=== PATIENT | female | born 1980 | race Hispanic/Latino ===

== ENCOUNTER 2017-07-17 17:35 | Emergency (ER) | payer OTHER, SELFPAY ==
[2017-07-17 17:58] VITALS: BMI 32.3
--- NOTE | 2017-07-17 19:01 | ED PDOC ---
Arrival/HPI - General Historian: Patient <Alejandra Gold A - Last Filed: 07/17/17 21:00> <Gavino Garcia - Last Filed: 07/17/17 22:17> - General Chief Complaint: Back Pain Time Seen by Provider: 07/17/17 17:51 - History of Present Illness Narrative History of Present Illness (Text): 07/17/17 18:51 37yo female with PMHx of Chiari's malformation present s/p Chiari surgery for surgical incision swelling x 2days. Notes surgery was done June 13 in [place]. She have had pain, but noticed swelling around the incision site since Sunday. Spoke with the neurosurgeon and was referred to ED for Cat scan. She denies fever, discharge from incision, nuchal ridigty, nausea, vomiting, dizziness, any other complaint. (Alejandra Gold A) Past Medical History - Provider Review Nursing Documentation Reviewed: Yes - Infectious Disease Hx of Infectious Diseases: None - Cardiac Hx Cardiac Disorders: No - Pulmonary Hx Respiratory Disorders: No - Neurological Other/Comment: Brain Surgery for Chiari Malformation. - HEENT Hx HEENT Disorder: No - Renal Hx Renal Disorder: No - Endocrine/Metabolic Hx Endocrine Disorders: No - Psychiatric Hx Substance Use: Yes - Surgical History Hx Appendectomy: Yes Other/Comment: Brain surgery 06/13/2017 - Anesthesia Hx Anesthesia: Yes Hx Anesthesia Reactions: No Hx Malignant Hyperthermia: No <Alejandra Gold A - Last Filed: 07/17/17 21:00> Family/Social History - Physician Review Nursing Documentation Reviewed: Yes Family/Social History: Unknown Family HX Smoking Status: Current Some Days Smoker Hx Alcohol Use: No Hx Substance Use: Yes Substance used: marijuana <Alejandra oGld A - Last Filed: 07/17/17 21:00> Allergies/Home Meds <Alejandra Gold A - Last Filed: 07/17/17 21:00> <Gavino Garcia - Last Filed: 07/17/17 22:17> Allergies/Adverse Reactions: Allergies tramadol Adverse Reaction (Verified 07/17/17 18:16) HEADACHE Home Medications: Home Meds Medication Instructions Recorded Confirmed Amoxicillin [Amoxil 500 mg Cap] 500 mg PO TID 07/17/17 07/17/17 Review of Systems - Physician Review All systems were reviewed & negative as marked: Yes - Review of Systems Constitutional: Normal Eyes: Normal ENT: Normal Respiratory: Normal Cardiovascular: Normal Gastrointestinal: Normal Genitourinary Female: Normal Musculoskeletal: Neck Pain Skin: Normal Neurological: Normal Endocrine: Normal Hemo/Lymphatic: Normal Psychiatric: Normal <Alejandra Gold A - Last Filed: 07/17/17 21:00> Physical Exam Vital Signs Reviewed: Yes Temperature: Afebrile Blood Pressure: Normal Pulse: Regular Respiratory Rate: Normal Appearance: Positive for: Well-Appearing, Non-Toxic, Comfortable Pain Distress: None Mental Status: Positive for: Alert and Oriented X 3 - Systems Exam Head: Present: Atraumatic, Normocephalic Pupils: Present: PERRL Extroacular Muscles: Present: EOMI Conjunctiva: Present: Normal Mouth: Present: Moist Mucous Membranes Neck: Present: Normal Range of Motion, Paraspinal Tenderness (b/l), Other ( Incision notes without erythema. No discharge. No sign of infection). No: Meningeal Signs Respiratory/Chest: Present: Clear to Auscultation, Good Air Exchange. No: Respiratory Distress, Accessory Muscle Use Cardiovascular: Present: Regular Rate and Rhythm, Normal S1, S2. No: Murmurs Abdomen: Present: Normal Bowel Sounds. No: Tenderness, Distention, Peritoneal Signs Back: Present: Normal Inspection Upper Extremity: Present: Normal Inspection. No: Cyanosis, Edema Lower Extremity: Present: Normal Inspection. No: Edema Neurological: Present: GCS=15, CN II-XII Intact, Speech Normal Skin: Present: Warm, Dry, Normal Color. No: Rashes Psychiatric: Present: Alert, Oriented x 3, Normal Insight, Normal Concentration <Alejandra Gold A - Last Filed: 07/17/17 21:00> Vital Signs Temp Pulse Resp BP Pulse Ox 07/17/17 21:56 98.2 F 72 17 145/89 98 07/17/17 19:39 75 18 131/89 96 07/17/17 17:51 97.6 F 69 18 147/83 98 Medical Decision Making <Alejandra Gold A - Last Filed: 07/17/17 21:00> <Gavino Garcia - Last Filed: 07/17/17 22:17> ED Course and Treatment: 07/17/17 21:00 PT with history of chiari malformation present with complaint of incision site swelling s/p chiari surgery last month. Soft tissue neck CT was ordered to r/o abscess PT was afebrile, hemodynamically stable in ED. Case was endorsed to Dr. Garcia to f/u CT and dispo pt. (Alejandra Gold) 07/17/17 22:13 Patient endorsed to me by MAGALIE Gold. CT showed a 3.6 x 4.4 x 1.4 cm fluid collection near the surgical site, likely seroma, pseudomeningocele, resolving hematoma or abscess. No fever or neurologic symptoms. Labs are unremarkable. Patient had the surgery in [place] by Dr. Wilson ([phone]), so she was d/c to follow up with the neurosurgeon tomorrow. After the patient left, Dr. Wilson's partner called back, and I informed him of the findings for follow up. (Gavino Garcia) - Lab Interpretations Lab Results: 07/17/17 19:03 07/17/17 19:03 Lab Results 07/17/17 19:03: Sodium 140, Potassium 4.4, Chloride 104, Carbon Dioxide 25, Anion Gap 15, BUN 18, Creatinine 0.8, Est GFR ( Amer) > 60, Est GFR (Non- Af Amer) > 60, Random Glucose 96, Calcium 10.1, Total Bilirubin 1.0, AST 32, ALT 78 H, Alkaline Phosphatase 72, Total Protein 8.1, Albumin 4.8, Globulin 3.2 , Albumin/Globulin Ratio 1.5 07/17/17 19:03: WBC 8.7, RBC 4.57, Hgb 13.1, Hct 40.4, MCV 88.4, MCH 28.7, MCHC 32.4, RDW 13.1, Plt Count 206, MPV 10.9, Gran % 52.0, Lymph % (Auto) 37.9 H, Harding % (Auto) 7.3 H, Eos % (Auto) 2.3, Baso % (Auto) 0.5, Gran # 4.51, Lymph # 3.3, Harding # 0.6, Eos # 0.2, Baso # 0.04 - RAD Interpretation Radiology Orders: 07/17/17 19:05 NECK SOFT TISSUE W/CONTRAST [CT] Stat - PA / INTERVENTIONAL TECH / Resident Statement / has reviewed & agrees with the documentation as recorded. MD/DO has examined the patient and agrees with the treatment plan. <Gavino Garcia - Last Filed: 07/17/17 22:17> Disposition/Present on Arrival - Present on Arrival History of DVT/PE: No History of Uncontrolled Diabetes: No Urinary Catheter: No History of Decub. Ulcer: No History Surgical Site Infection Following: None <Alejandra Gold - Last Filed: 07/17/17 21:00> - Present on Arrival Any Indicators Present on Arrival: No - Disposition Have Diagnosis and Disposition been Completed?: Yes Disposition Time: 21:50 Patient Plan: Discharge <Gavino Garcia - Last Filed: 07/17/17 22:17> - Disposition Diagnosis: Fluid collection at surgical site Disposition: HOME/ ROUTINE Condition: GOOD Additional Instructions: You have a fluid collection at the surgical site. Go to your neurosurgeon in [place] tomorrow. Return to the emergency department if any new concerning symptoms. [facility] - Follow up with primary Forms: [employer] ([place] Citizen)
[2017-07-17 19:19] LABS: BASO # 0.04 K/mm3 (0.0-2.0); BASO % 0.5 % (0.0-3.0); EOS # 0.2 (0.0-0.7); EOS % 2.3 % (1.5-5.0); GRAN # 4.51 (1.4-6.5); HEMATOCRIT 40.4 % (36.0-48.0); LYMPH # 3.3 (1.2-3.4); LYMPH % 37.9 % (22.0-35.0); MEAN CELL VOLUME 88.4 fl (80.0-105.0); MEAN CORPUSCULAR HEMOGLOBIN 28.7 pg (25.0-35.0); MEAN CORPUSCULAR HGB CONC 32.4 g/dl (31.0-37.0); MEAN PLATELET VOLUME 10.9 fl (7.0-11.0); MONO # 0.6 (0.1-0.6); MONO % 7.3 % (1.0-6.0); RED CELL DISTRIBUTION WIDTH 13.1 % (11.5-14.5); WHITE BLOOD COUNT 8.7 10^3/ul (4.5-11.0)
[2017-07-17 19:27] LABS: ALB/GLOB RATIO 1.5 (1.1-1.8); ALKALINE PHOSPHATASE 72 U/L (38-126); ALT/SGPT 78 U/L (7-56); AST/SGOT 32 U/L (14-36); BLOOD UREA NITROGEN 18 mg/dL (7-21); CALCIUM 10.1 mg/dL (8.4-10.5); CARBON DIOXIDE 25 mmol/L (21-33); CHLORIDE 104 mmol/L (98-107); GFR AFRICAN-AMERICAN > 60; GLUCOSE,RANDOM 96 mg/dL (70-110); POTASSIUM 4.4 mmol/L (3.6-5.0); SODIUM 140 mmol/L (132-148); TOTAL PROTEIN 8.1 g/dL (5.8-8.3)
[2017-07-17] MEDS ORDERED: Iohexol 350 MG/100 ML VIAL ONE (21:11)
--- NOTE | 2017-07-17 21:15 | CT ---
EXAM: CT Neck With Intravenous Contrast CLINICAL HISTORY: 37 years old, female; Pain; Neck pain; Prior surgery; Surgery date: 1-6 months; Surgery type: Pt had procedure on brain one month ago. Pt not sure what kind of sugery; Additional info: Pain/swelling S/P surgery TECHNIQUE: Axial computed tomography images of the neck with intravenous contrast. All CT scans at this facility use one or more dose reduction techniques, viz.: automated exposure control; ma/kV adjustment per patient size (including targeted exams where dose is matched to indication; i.e. head); or iterative reconstruction technique. Coronal and sagittal reformatted images were created and reviewed. CONTRAST: 100 mL of omni 350 administered intravenously. COMPARISON: No relevant prior studies available. FINDINGS: Nasopharynx: Unremarkable. Oropharynx: No significant tonsillar enlargement. No peritonsillar abscess. Hypopharynx: Unremarkable. Larynx: Unremarkable. Normal epiglottis. Trachea: Unremarkable. Retropharyngeal space: Unremarkable. Submandibular/parotid glands: Unremarkable. Glands are normal in size. Thyroid: Unremarkable. No enlarged or calcified nodules. Bones/joints: Occipital craniectomy. Soft tissues: 3.6 x 4.4 x 1.4 cm fluid collection contiguous and inferior to craniectomy site. Posterior midline scar. Vasculature: No acute findings. Lymph nodes: No pathologically enlarged lymph nodes. Sinuses: Small RIGHT maxillary retention cyst. Dental: Dental caries. Lung apices: Unremarkable as visualized. IMPRESSION: 1. Fluid collection adjacent to operative site. DDX: Seroma, pseudomeningocele, resolving hematoma, abscess. Clinical correlation is needed. 2. Incidental/non-acute findings are described above.
[2017-07-17 21:58] VITALS: BP 145/89; PULSE 72; RESP 17; TEMP 98.2; O2SAT 98
== END 2017-07-17 21:57 | disposition home or self-care (01) ==
LOC: ED 17:35
DX: T81.89XA Other complications of procedures, not elsewhere classified, initial encounter (principal); Y83.8 Other surgical procedures as the cause of abnormal reaction of the patient, or of later complication, without mention of misadventure at the time of the procedure; Y92.89 Other specified places as the place of occurrence of the external cause
CPT/HCPCS: 70491; 80053; 85025; 99283; Q9967